=== PATIENT | female | born 1970 | race Caucasian/White ===

== ENCOUNTER 2021-07-28 18:48 | Emergency (ER) | payer MEDICARE, MEDICAID, SELFPAY ==
--- NOTE | 2021-07-28 | ECG_ITS ---
Test Reason : CP Blood Pressure : / mmHG Vent. Rate : 061 BPM Atrial Rate : 061 BPM P-R Int : 134 ms QRS Dur : 078 ms QT Int : 414 ms P-R-T Axes : 008 -46 016 degrees QTc Int : 416 ms Normal sinus rhythm Left anterior fascicular block Septal infarct , age undetermined Abnormal ECG No previous ECGs available Referred By: Generic ED Physician Electronically Signed By:Rodney Beckwith
--- NOTE | ~2021-07-28 | XR_ITS ---
EXAMINATION: XR CHEST CLINICAL INFORMATION: Shortness of breath. COMPARISON: Chest radiograph dated from 09/18/2006. TECHNIQUE: PA view of the chest was obtained. FINDINGS: No significant abnormality is noted involving the heart, lungs, mediastinum, bony thorax or soft tissues. XR/XR chest 1V IMPRESSION: Unremarkable examination.
[2021-07-28 19:57] VITALS: BP 141/85; PULSE 70; RESP 16; TEMP 36.6; O2SAT 98; BMI 21.9
[2021-07-28 21:58] LABS: Basophils Absolute Auto 0.1 X10*3/uL (0.0-0.2); Eosinophils Absolute Auto 0.1 X10*3/uL (0.0-0.4); Eosinophils Percent Auto 0.9 % (0-4); Hematocrit 38.4 % (37.0-47.0); Hemoglobin 13.1 g/dl (12.0-16.0); Imm Gran Abs Auto 0.09 X10*3/uL (0.00-0.03); Imm Gran Pct Auto 0.9 % (0.0-0.4); Lymphocytes Absolute Auto 3.4 X10*3/uL (1.2-4.9); Lymphocytes Percent Auto 32.3 % (20-40); MANUAL DIFF FLAG NO; Mean Corpuscular HGB Conc 34.1 g/dl (31.0-35.0); Mean Corpuscular Hemoglobin 31.3 pg (27.0-33.0); Mean Corpuscular Volume 91.6 fL (80.0-98.0); Mean Platelet Volume 9.5 fL (9.4-12.3); Monocytes Percent Auto 9.2 % (2-11); Neutrophils Absolute Auto 5.9 x10*3/uL (2.0-8.3); Neutrophils Percent Auto 55.7 % (45-73); Platelet Count 218 X10*3/uL (160-400); Red Blood Count 4.19 X10*6/uL (4.20-5.50); Red Cell Distribution Width 14.6 % (11.0-16.0); White Blood Count 10.5 X10*3/uL (4.8-10.8)
[2021-07-28 22:14] LABS: Alanine Aminotransferase 10 U/L (0-31); Alkaline Phosphatase 56 U/L (39-117); Anion Gap 9 (12-20); Aspartate Amino Transferase 12 U/L (5-31); Bilirubin Total 0.3 mg/dL (0.0-1.0); Blood Urea Nitrogen 10 mg/dL (9-16); Calcium 9.1 mg/dL (8.4-10.2); Carbon Dioxide 24 mmol/L (22-29); Chloride 109 mmol/L (96-108); Creatinine Clr Calc Pharmacy 63.2; Estimated Glomerular Filt Rate > 60; Glucose Random 93 mg/dL (60-115); Potassium 4.1 mmol/L (3.3-5.1); Sodium 138 mmol/L (135-145); Total Protein 6.4 g/dL (6.5-8.0)
== END 2021-07-29 01:43 | disposition left against medical advice (07) ==
PROVIDERS: Emergency Provider Emergency Medicine; PCP Nurse Practitioner Family
DX: U07.1 COVID-19 (principal); R07.89 Other chest pain; R06.02 Shortness of breath; Z79.899 Other long term (current) drug therapy
CPT/HCPCS: 36415; 71045; 80053; 85025; 93005; 99283

== ENCOUNTER 2021-09-23 10:51 | Day surgery (SDC) | payer MEDICARE, MEDICAID, SELFPAY ==
--- NOTE | 2021-09-22 10:45 | HO.ANESPROP2 ---
Documented by User: Sarai Garcia NP 09/22/21 10:47 HPI - Anesthesia Eval Consult details Narrative: 51yo F for Colonoscopy PMFSH Past Medical History Medical History (Updated 09/19/21 @ 11:46 by Zeinab Liu RN) Bipolar disorder COVID-19 History of kidney stones Interstitial cystitis Neurogenic bladder Polycystic ovarian syndrome Surgical History Surgical History (Updated 09/19/21 @ 11:53 by Zeinab Liu RN) History of bilateral carpal tunnel release History of shoulder surgery Hx of colonoscopy Hx of neck surgery Social History Social History Patient Tobacco Use Status: Current everyday Tobacco user Tobacco use type: Cigarette Cigarettes Per Day: 5 Use of substances other than those prescribed or required for medical reasons: Yes Are you DNR?: No Advance Directives: No Advance Directives Information Provided: Yes Recently lost weight without trying: Yes How much weight loss: 14-23 pounds Nutrition Risks: No Nutritional Risk Meds Allergies Allergy/AdvReac Type Severity Reaction Status Date / Time latex [LATEX] Allergy Unknown SWELLING Verified 07/28/21 19:56 Home Medications Medication Instructions Recorded Confirmed Last Taken Type buspirone 15 mg tablet 1 tab PO BID 09/19/21 09/19/21 09/23/21 History fluoxetine 20 mg capsule 2 cap PO QAM 09/19/21 09/19/21 09/23/21 History fluticasone propionate 50 1 spray INTRANASAL DAILY 09/19/21 09/19/21 Unknown History mcg/actuation nasal spray,suspension hydroxyzine pamoate 25 mg capsule 1 cap PO TID PRN 09/19/21 09/19/21 09/23/21 History lamotrigine 25 mg tablet 1 tab PO BID 09/19/21 09/19/21 Unknown History lorazepam 0.5 mg tablet 1 tab PO DAILY PRN 09/19/21 09/19/21 Unknown History naproxen 500 mg tablet 1 tab PO BID 09/19/21 09/19/21 Unknown History spironolactone 50 mg tablet 1 tab PO DAILY 09/19/21 09/19/21 Unknown History topiramate 100 mg tablet 1 tab PO BID 09/19/21 09/19/21 09/23/21 History topiramate 50 mg tablet 1 tab PO BID 09/19/21 09/19/21 09/23/21 History trazodone 50 mg tablet 50 mg PO BEDTIME 09/19/21 09/19/21 Unknown History ziprasidone HCl 40 mg capsule 1 cap PO BEDTIME 09/19/21 09/19/21 Unknown History Exam Exam Date and Time: September 22, 2021 1045 Pertinent Lab Results Pertinent Lab Results: Laboratory Tests 07/28/21 07/28/21 21:52 21:52 WBC 10.5 Hgb 13.1 Hct 38.4 Plt Count 218 Sodium 138 Potassium 4.1 Chloride 109 H Carbon Dioxide 24 BUN 10 Creatinine 0.94 Assessment and Plan Assessment Anesthesia Assessment: Chart Reviewed Documented by User: Jacinto Harris MD 09/23/21 12:54 [facility] Past Medical History Medical History (Updated 09/19/21 @ 11:46 by Zeinab Liu RN) Bipolar disorder COVID-19 History of kidney stones Interstitial cystitis Neurogenic bladder Polycystic ovarian syndrome Family History Family history of problems with anesthesia: No Surgical History Surgical History (Updated 09/19/21 @ 11:53 by Zeinab Liu RN) History of bilateral carpal tunnel release History of shoulder surgery Hx of colonoscopy Hx of neck surgery History of Problems with Anesthesia: No Social History Social History Patient Tobacco Use Status: Current everyday Tobacco user Tobacco use type: Cigarette Cigarettes Per Day: 5 Use of substances other than those prescribed or required for medical reasons: Yes Are you DNR?: No Advance Directives: No Advance Directives Information Provided: Yes Recently lost weight without trying: Yes How much weight loss: 14-23 pounds Nutrition Risks: No Nutritional Risk Meds Allergies Allergy/AdvReac Type Severity Reaction Status Date / Time latex [LATEX] Allergy Unknown SWELLING Verified 07/28/21 19:56 Home Medications Medication Instructions Recorded Confirmed Last Taken Type buspirone 15 mg tablet 1 tab PO BID 09/19/21 09/19/21 09/23/21 History fluoxetine 20 mg capsule 2 cap PO QAM 09/19/21 09/19/21 09/23/21 History fluticasone propionate 50 1 spray INTRANASAL DAILY 09/19/21 09/19/21 Unknown History mcg/actuation nasal spray,suspension hydroxyzine pamoate 25 mg capsule 1 cap PO TID PRN 09/19/21 09/19/21 09/23/21 History lamotrigine 25 mg tablet 1 tab PO BID 09/19/21 09/19/21 Unknown History lorazepam 0.5 mg tablet 1 tab PO DAILY PRN 09/19/21 09/19/21 Unknown History naproxen 500 mg tablet 1 tab PO BID 09/19/21 09/19/21 Unknown History spironolactone 50 mg tablet 1 tab PO DAILY 09/19/21 09/19/21 Unknown History topiramate 100 mg tablet 1 tab PO BID 09/19/21 09/19/21 09/23/21 History topiramate 50 mg tablet 1 tab PO BID 09/19/21 09/19/21 09/23/21 History trazodone 50 mg tablet 50 mg PO BEDTIME 09/19/21 09/19/21 Unknown History ziprasidone HCl 40 mg capsule 1 cap PO BEDTIME 09/19/21 09/19/21 Unknown History Exam Airway Mallampati Class: II TM Dist: >3cm Neck ROM: Full Loose/Missing/Broken Teeth: Yes (Chipped , poor dentation ) Heart: RRR Lungs: b/l breath sounds Assessment and Plan Assessment Anesthesia Assessment: Anesthesia Plan Discussed Final Anesthetic Review Family History of Problems with Anesthesia: No History of Problems with Anesthesia: No NPO: Yes ASA Class: II Final Preanesthetic Review: Meds/Allgs Chart Reviewed, Consent Obtained/Reviewed and Anes Risks/Benef Reviewed Patient Risk: Intermediate Procedure Risk: Intermediate Anesthetic Plan Anesthetic Plan: MAC: Disposition: Standard PACU
[2021-09-23 11:29] VITALS: BMI 21.4
[2021-09-23 11:45] VITALS: BP 98/61; PULSE 68; RESP 16; TEMP 36.7; O2SAT 98
[2021-09-23] MEDS: Lactated Ringers 1,000 ML 100 ML IVCONT (11:52)
[2021-09-23 11:57] LABS: UPreg QC Valid YES; Urine Pregnancy NEGATIVE (NEGATIVE)
--- NOTE | 2021-09-23 12:13 | MHC.SHP ---
Pre-Procedural Eval Section A Date of Service: 09/23/21 The patient is an INPATIENT: No Changes since office visit: No Cold of Flu in the past 2 weeks, No New Medical Problems, No Changes in Medication and No Patient answered all questions The History & Physical has been completed within 30 days and I have reviewed it.: Yes Section B Chief Complaint: screening Allergies: Allergies Allergy/AdvReac Type Severity Reaction Status Date / Time latex [LATEX] Allergy Unknown SWELLING Verified 07/28/21 19:56 Plan I have reviewed the history and physical and performed a pertinent physical examination on my patient. No changes have occurred unless specified.
--- NOTE | 2021-09-23 12:47 | PM.OP ---
Brief Operative Note Date of Service: 09/23/21 Pre-op diagnosis: screening Post-op diagnosis: same Surgeon: Mason Machado Anesthesia: MAC Was an Coupon Collection Clerk used for this Procedure?: No Estimated blood loss (mL): 2 Pathology: other Condition: stable Disposition: PACU
[2021-09-23 12:50] VITALS: BP 88/46; PULSE 56; RESP 16; TEMP 36.4; O2SAT 98
[2021-09-23 13:05] VITALS: BP 103/46; PULSE 58; RESP 18; TEMP 36.1; O2SAT 100
--- NOTE | 2021-09-28 10:33 | OP_ITS ---
SURGEON: Mason Machado MD INDICATIONS: Colon cancer screening. PREOPERATIVE DIAGNOSIS: POSTOPERATIVE DIAGNOSIS: PROCEDURE PERFORMED: Colonoscopy to the terminal ileum with biopsy. ESTIMATED BLOOD LOSS: COMPLICATIONS: ANESTHESIA: ASSISTANTS: SPECIMENS: MEDICATIONS: Monitored anesthesia care. DESCRIPTION OF PROCEDURE: History and physical were performed. The risks and benefits of the procedure were explained to the patient. Informed consent was obtained. The patient was placed in the left lateral decubitus position. A digital rectal exam was performed and was found to be normal. The Olympus pediatric video colonoscope was introduced into the rectum and advanced to the cecum without difficulty. The cecum was identified by transillumination, palpation, and identification of ileocecal valve. Examination was performed. The scope was removed. She tolerated the procedure well and was taken to recovery area in stable condition. FINDINGS: The terminal ileum was examined and appeared normal. The visualized colonic mucosa was within normal limits without evidence of masses, ulcers, or polyps. The quality of the prep was good. Retroflexed examination showed small internal hemorrhoids. Random sigmoid biopsies were obtained to rule out microscopic colitis. IMPRESSION: Normal colonoscopy. RECOMMENDATION: 1. Follow up the biopsy results. 2. Repeat colonoscopy is recommended in 5 years because of family history of colon polyps. MD BELL Galicia/ZULEYKAL / [id number]
== END 2021-09-23 13:25 | disposition home or self-care (01) ==
PROVIDERS: Nurse Practitioner; PCP Nurse Practitioner Family; Visit Provider Internal Medicine Gastroenterology
PROC: 0DJD8ZZ Inspection of Lower Intestinal Tract, Via Natural or Artificial Opening Endoscopic (ICD-10-PCS; CPT 45378; principal; 2021-09-23 12:10)
DX: Z12.11 Encounter for screening for malignant neoplasm of colon (principal); Z83.71 Family history of colonic polyps; K59.9 Functional intestinal disorder, unspecified; K64.8 Other hemorrhoids; N31.9 Neuromuscular dysfunction of bladder, unspecified; E28.2 Polycystic ovarian syndrome; F31.9 Bipolar disorder, unspecified; Z79.899 Other long term (current) drug therapy; Z79.1 Long term (current) use of non-steroidal anti-inflammatories (NSAID); Z91.040 Latex allergy status; Z87.442 Personal history of urinary calculi; Z98.890 Other specified postprocedural states; Z86.16 Personal history of COVID-19; F17.210 Nicotine dependence, cigarettes, uncomplicated
CPT/HCPCS: 45380; 81025; 88305